=== PATIENT | female | born 1970 | race Caucasian/White ===

== ENCOUNTER 2021-03-25 06:48 | Day surgery (SDC) | payer OTHER ==
[2021-03-24 10:51] VITALS: BMI 31.3
[2021-03-25] MEDS ORDERED: ceFAZolin 2 GM/Dextrose 50 ML IVPB ONE (07:04)
[2021-03-25] MEDS ORDERED: Vancomycin HCl 1.5 GM in Sodium Chloride 0.9% 250 ML 300 ML IVPB SCH (07:30)
[2021-03-25] MEDS ORDERED: Midazolam HCl 2 mg/2 ml Vial ONE (08:05)
[2021-03-25] MEDS ORDERED: Fentanyl 100 MCG/2 ML VIAL ONE ×3 (08:05→11:44)
[2021-03-25] MEDS ORDERED: Ondansetron PF 4 MG/2 ML Vial IVP PRN (08:45)
[2021-03-25] MEDS ORDERED: Zolpidem Tartrate 5 MG TAB PO PRN (08:45)
[2021-03-25] MEDS ORDERED: Promethazine HCl 25 MG/ML VIAL IM PRN (08:45)
[2021-03-25] MEDS ORDERED: Ropivacaine 0.2% 550 ML 550 ML NERVE BLCK SCH (08:45)
[2021-03-25] MEDS ORDERED: HYDROcodone/Acetaminophen 10/325 mg Tablet PO PRN ×2 (08:45)
[2021-03-25] MEDS ORDERED: traMADol HCl 50 MG TAB PO PRN ×2 (08:45)
[2021-03-25] MEDS ORDERED: Lidocaine 2% Jelly 5 ML TUBE ONE (08:54)
[2021-03-25] MEDS ORDERED: Rocuronium Bromide 10 MG/ML (10ML VIAL) ONE (09:15)
[2021-03-25] MEDS ORDERED: Albuterol Sulfate HFA (OR ONLY) ONE (09:15)
[2021-03-25] MEDS ORDERED: PROPOFOL 200 MG/20 ML VIAL ONE (09:15)
[2021-03-25] MEDS ORDERED: Glycopyrrolate 0.2 MG/ML 5 ML SYRINGE ONE (09:15)
[2021-03-25] MEDS ORDERED: Dexamethasone 20 MG/5 ML VIAL ONE (09:15)
[2021-03-25] MEDS ORDERED: Ondansetron PF 4 MG/2 ML Vial ONE (09:15)
[2021-03-25] MEDS ORDERED: Ropivacaine 2% HCl/PF (20 MG/10 ML VIAL) ONE (09:15)
[2021-03-25] MEDS ORDERED: Ropivacaine 0.5% HCl/PF (150 MG/30 ML VIAL) ONE (09:15)
[2021-03-25] MEDS ORDERED: Lidocaine 1% w/Epinephrine 1:100K 20 ML VIAL ONE (09:20)
[2021-03-25] MEDS ORDERED: HYDROcodone/Acetaminophen 5/325 mg Tablet ONE (12:58)
== END 2021-03-25 14:22 | disposition home or self-care (01) ==
LOC: SDC 06:48
PROVIDERS: ATTEND Orthopaedic Surgery
PROC: 0RHJ04Z Insertion of Internal Fixation Device into Right Shoulder Joint, Open Approach (ICD-10-PCS; principal; 2021-03-25)
PROC: 3E0T3BZ Introduction of Anesthetic Agent into Peripheral Nerves and Plexi, Percutaneous Approach (ICD-10-PCS; principal; 2021-03-25)
PROC: 0RNJ4ZZ Release Right Shoulder Joint, Percutaneous Endoscopic Approach (ICD-10-PCS; principal; 2021-03-25)
PROC: 0LS30ZZ Reposition Right Upper Arm Tendon, Open Approach (ICD-10-PCS; principal; 2021-03-25)
PROC: 0LQ14ZZ Repair Right Shoulder Tendon, Percutaneous Endoscopic Approach (ICD-10-PCS; principal; 2021-03-25)
DX: S46.011A Strain of muscle(s) and tendon(s) of the rotator cuff of right shoulder, initial encounter (principal); M25.811 Other specified joint disorders, right shoulder; S43.491A Other sprain of right shoulder joint, initial encounter; S46.211A Strain of muscle, fascia and tendon of other parts of biceps, right arm, initial encounter; Z79.899 Other long term (current) drug therapy; X50.0XXA Overexertion from strenuous movement or load, initial encounter
CPT/HCPCS: A4306; C1713; J0690; J1100; J2250; J2405; J2704; J2795; J3010; J3370; J7050

== ENCOUNTER → 2021-03-26 | Day surgery (SDC) | payer SELFPAY ==
[~2021-03-26] MED LIST: Ropivacaine 0.2% HCl/PF 20 ML ONE; Ropivacaine 0.5% HCl/PF (150 MG/30 ML VIAL) ONE; Sodium Chloride 0.9% 10 ML ONE
== END ==
LOC: SDC/OP 14:02
PROVIDERS: ATTEND Anesthesiology
DX: G89.18 Other acute postprocedural pain (principal); M25.511 Pain in right shoulder
CPT/HCPCS: J2795